=== PATIENT | male | born 1950 | race Caucasian/White ===

== ENCOUNTER → 2016-12-01 | Outpatient (CLI) | payer BC | LOC: COL.RAD 09:21 | DX: M16.12 Unilateral primary osteoarthritis, left hip (principal) | CPT/HCPCS: J3301; Q9967 ==

== ENCOUNTER → 2017-08-15 | Outpatient (CLI) | payer BC, MEDICARE | LOC: COL.VAS 12:30 | DX: M79.605 Pain in left leg (principal); R22.42 Localized swelling, mass and lump, left lower limb; Z96.642 Presence of left artificial hip joint; Z98.890 Other specified postprocedural states ==